=== PATIENT | female | born 1960 | race Caucasian/White ===

== ENCOUNTER → 2024-04-29 13:07 | Outpatient (REF) | payer BC, SELFPAY | LOC: HWWDC 13:07 | PROVIDERS: ATTENDING PHYSICIAN Obstetrics & Gynecology; FAMILY PHYSICIAN Nurse Practitioner Adult Health | DX: Z12.31 Encounter for screening mammogram for malignant neoplasm of breast (principal) | CPT/HCPCS: 77063; 77067 ==

== ENCOUNTER → 2025-03-20 13:26 | Outpatient (REF) | payer MEDICARE, OTHER, SELFPAY | LOC: HWRAD 13:26 | PROVIDERS: ATTENDING PHYSICIAN Nurse Practitioner Adult Health | DX: M46.1 Sacroiliitis, not elsewhere classified (principal); G57.00 Lesion of sciatic nerve, unspecified lower limb | CPT/HCPCS: 73521 ==